=== PATIENT | male | born 1960 | race Caucasian/White ===

== ENCOUNTER 2022-12-05 16:00 | Emergency (ER) | payer OTHER ==
[2022-12-05 16:17] VITALS: BMI 25.2
[2022-12-05] MEDS ORDERED: SODIUM CHLORIDE 0.9% 500 ML INFUS.BAG IV ONE (16:44)
[2022-12-05] MEDS ORDERED: LORazepam 2 MG/ML SDV VIAL IVPUSH ONE (16:45)
[2022-12-05 17:31] LABS: BASO % 0.7 % (0-2.0); EOS % 1.5 % (0-4.5); HEMATOCRIT 35.9 % (35.4-49); HEMOGLOBIN 11.9 GM/dL (11.7-16.9); LYMPH % 18.6 % (8-40); MCH 28.4 pg (25.7-33.7); MCHC 33.2 g/dl (32.0-35.9); MEAN CELL VOLUME 85.5 fl (80-96); MEAN PLT VOLUME 7.3 fl (7.5-11.1); MONO % 13.9 % (3.8-10.2); NEUT % 65.3 % (42.8-82.8); PLATELET COUNT 220 10^3/uL (134-434); RDW 13.4 % (11.9-15.9); WHITE BLOOD COUNT 5.9 K/mm3 (4.0-10.0)
[2022-12-05 17:49] LABS: CALCIUM 9.5 mg/dL (8.5-10.1)
[2022-12-05 17:50] LABS: ALBUMIN 3.6 g/dl (3.4-5.0); BLOOD UREA NITROGEN 15.7 mg/dL (7-18)
[2022-12-05 17:55] LABS: BILIRUBIN,TOTAL 0.3 mg/dL (0.2-1); TOT PROT 7.1 g/dl (6.4-8.2)
[2022-12-05] MEDS ORDERED: chlordiazePOXIDE HCL 25 MG CAPSULE PO ONE (19:07)
[2022-12-05] MEDS ORDERED: chlordiazePOXIDE HCL 25 MG CAPSULE ONE (19:24)
[2022-12-05 19:37] VITALS: BP 156/89; PULSE 98; RESP 18; TEMP 98.9
== END 2022-12-05 19:37 | disposition home or self-care (01) ==
LOC: JER 16:00
PROC: 3E033GC Introduction of Other Therapeutic Substance into Peripheral Vein, Percutaneous Approach (ICD-10-PCS; principal; 2022-12-05)
DX: R25.1 Tremor, unspecified (principal); F10.939 Alcohol use, unspecified with withdrawal, unspecified; Y90.9 Presence of alcohol in blood, level not specified
CPT/HCPCS: 36415; 80053; 85025; 93005; 93010; 99284-25